=== PATIENT | female | born 1940 | race Asian ===

== ENCOUNTER 2019-06-04 06:24 | Day surgery (SDC) | payer OTHER ==
[~2019-06-04] VITALS: Ht 162.6 cm; Wt 45.0 kg
[~2019-06-04 06:24] MED LIST: SODIUM CHLORIDE 0.9% 1,000 ML ONE
[2019-06-04] MEDS ORDERED: ALEN70TA19 PO (06:27)
[2019-06-04] MEDS ORDERED: ATOR40TA71 PO (06:27)
[2019-06-04] MEDS ORDERED: FURO40TA5 PO (06:27)
[2019-06-04] MEDS ORDERED: SODIUM CHLORIDE 0.9% 1,000 ML IV ONE (07:00)
[2019-06-04] MEDS ORDERED: MIDAZOLAM HCL 2 MG/2 ML VIAL ONE (07:13)
[2019-06-04] MEDS ORDERED: FentaNYL CITRATE-PF 100 MCG/2 ML VIAL ONE (07:14)
[2019-06-04] MEDS ORDERED: CLOP75TA32 PO (07:24)
[2019-06-04] MEDS ORDERED: [UNRECOGNIZED DRUG - CODE] PO (07:24)
[2019-06-04] MEDS ORDERED: MethylPREDNISolone SOD SUCC 125 MG/2 ML VIAL IVP ONE (08:45)
[2019-06-04] MEDS ORDERED: MethylPREDNISolone SOD SUCC 125 MG/2 ML VIAL ONE (08:46)
[2019-06-04] MEDS ORDERED: OXYGEN THERAPY IH SCH (20:00)
== END 2019-06-04 10:20 | disposition home or self-care (01) ==
LOC: SURGERY 06:24
PROVIDERS: ATTEND Internal Medicine Critical Care Medicine
DX: R05 Cough (principal); R91.1 Solitary pulmonary nodule; J84.9 Interstitial pulmonary disease, unspecified; J34.89 Other specified disorders of nose and nasal sinuses; J98.8 Other specified respiratory disorders; J38.4 Edema of larynx; B37.0 Candidal stomatitis; I10 Essential (primary) hypertension; E78.00 Pure hypercholesterolemia, unspecified; Z79.899 Other long term (current) drug therapy; Z98.890 Other specified postprocedural states; Z91.018 Allergy to other foods; Z91.09 Other allergy status, other than to drugs and biological substances; R19.00 Intra-abdominal and pelvic swelling, mass and lump, unspecified site
CPT/HCPCS: 31623; 31624; 71045; 87015; 87070; 87077; 87101; 87186; 87205; 87206; 87220; 88112; 88184; 88185; 88312; 93005; J2250; J2930; J3010; J7030